=== PATIENT | male | born 1995 | race Caucasian/White ===

== ENCOUNTER 2020-10-24 17:40 | Emergency (ER) | payer OTHER, SELFPAY ==
[2020-10-24 18:07] VITALS: BP 117/79; PULSE 72; RESP 14; TEMP 37; O2SAT 100; BMI 27.0
[2020-10-24] MEDS: HYDROcodone-acetaminophen 5-325 mg Tablet 1 TAB PO (20:35)
[2020-10-24] MEDS: silvasorb gel 44.4 mL 1 APPLIC TOPICAL (20:40)
[2020-10-24 20:50] VITALS: BP 117/79; PULSE 84; RESP 22; O2SAT 98
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
== END 2020-10-24 20:45 | disposition home or self-care (01) ==
PROVIDERS: Emergency Provider Nurse Practitioner Family; PCP Family Medicine
DX: T20.26XA Burn of second degree of forehead and cheek, initial encounter (principal); T21.22XA Burn of second degree of abdominal wall, initial encounter; T23.161A Burn of first degree of back of right hand, initial encounter; X08.8XXA Exposure to other specified smoke, fire and flames, initial encounter
CPT/HCPCS: 12345; 16020; 99281; 99283

== ENCOUNTER → 2025-01-12 15:46 | Outpatient (BNVA) | payer OTHER, SELFPAY | PROVIDERS: PCP Family Medicine; Visit Provider Emergency Medicine | DX: R50.9 Fever, unspecified (principal); J02.9 Acute pharyngitis, unspecified; J06.9 Acute upper respiratory infection, unspecified | CPT/HCPCS: 86308; 87071; 87880 ==

== ENCOUNTER 2025-01-15 07:26 | Outpatient (CLI) | payer OTHER, SELFPAY ==
--- NOTE | 2025-01-15 07:36 | US_ITS ---
WS: [id number] Complete ABDOMINAL ULTRASOUND HISTORY: ELEVATED LIVER ENZYMES COMPARISON: 07/26/2010 Liver: 15.1 cm in length. Normal size liver and echogenicity. No bile duct dilatation or mass. Portal Vein: Normal hepatopetal flow with monophasic waveform. Gallbladder: Prior cholecystectomy. CBD: 0.5 cm Pancreas: Normal size and echogenicity. Right kidney: 11.6 cm x 5.1 x 5.1 cm. Cortex:1.0 cm. Normal size and echogenicity. No hydronephrosis or mass. Left kidney: 12.0 cm x 4.8 cm x 4.4 cm. Cortex: 1.5 cm. Normal size and echogenicity. No hydronephrosis or mass. Spleen: 13.6 cm. Top normal size spleen. Similar to the prior study from 07/26/2010. Aorta and IVC: Unremarkable abdominal aorta and IVC. US/US abdomen complete* [id number] Impression: 1. Status post cholecystectomy. 2. Spleen is measuring top normal size but similar to the prior study from 201 0. 3. No renal obstruction.
== END 2025-01-15 07:27 | disposition home or self-care (01) ==
PROVIDERS: PCP Family Medicine; Visit Provider Nurse Practitioner Family
DX: R74.8 Abnormal levels of other serum enzymes (principal); Z90.49 Acquired absence of other specified parts of digestive tract
CPT/HCPCS: 76700